=== PATIENT | male | born 1990 | race Caucasian/White ===

== ENCOUNTER 2016-11-01 21:38 | Emergency (ER) | payer OTHER ==
[~2016-11-01] VITALS: Ht 170.2 cm; Wt 68.2 kg
[2016-11-01 21:49] VITALS: BP 113/66; PULSE 58; RESP 16; O2SAT 98
--- NOTE | 2016-11-01 22:46 | ED.REPORT ---
HPI- Male Date of Service Nov 01, 2016 ED Provider: Dr. Chris Mejia M.D. A 26 year old male presents to the ED with white/yellow penile discharge onset two days ago. The patient also reports painful penile sores and ureteral pain exacerbated with urination. He recently had sexual intercourse with a new partner three days prior to symptom onset. The patient denies any recent travel. Nursing Notes Stated Complaint: DISCHARGE FROM PENIS Chief Complaint: Male Abdominal Pain Nursing Notes Reviewed: Yes Allergies: Coded Allergies: No Known Allergies (Verified Allergy, Unknown, 11/01/16) Scheduled Acyclovir (Acyclovir) 800 Mg Tab 800 MG PO TID Doxycycline Monohyd (Doxycycline Monohyd) 100 Mg Tablet 100 MG PO BID Metronidazole (Flagyl) 500 Mg Tablet 500 MG PO Q8H General Time Seen by MD: 22:46 Chief Complaint Penile discharge... (Yellow/White) Hx Obtained From: Patient Arrived By: Walk-in Onset Occurred: 2 days ago Context of Onset: New sexual contact Symptom Duration: Since onset Location: : Penis (and ureter) Quality: Painful Severity: Current: Moderate Severity: Maximum: Moderate Associated with: Denies: Fever Exacerbated by: Urination Pertinent Negative: Relieved by nothing Recent Healthcare: No recent doctor visit Past Medical History Past Medical History None reported Past Surgical History None reported Smoking History Unknown if Ever Smoker Ambulatory Status Independent Review of Systems Review of Systems Note: + Ureteral pain Constitutional: Denies: Fever GI: Denies: Diarrhea, Vomiting Male: Reports Dysuria, Reports Penile discharge (White/Yellow), Reports Penile lesion Complete sys rev & neg: except as marked. Physical Exam Initial Vital Signs Vital Signs (First) Date Time Temp Pulse Resp B/P Pulse Ox O2 Delivery O2 Flow Rate FiO2 11/01/16 21:49 36.4 58 16 113/66 98 Room Air Head / Eyes: Atraumatic, Normocephalic ENT: Conjunctiva normal, No scleral icterus Neck: Supple, Full range of motion Respiratory: No respiratory distress Skin: Warm, Dry Neurologic: Alert, Oriented, Nonfocal Psychiatric: Mood/affect normal, Behavior normal, Normal thought content Penis: Positive: Discharge present clear, Erythema present (Mild, ureteral ), Lesions present... (x3 ulcerated lesions to underside of penis in peroneal sulcus, consistent with herpes), Negative: Condyloma present No shotty nodes General/Constitutional: Awake, Alert, No acute distress Interpretation & Diagnostics Lab Results Interpretation Test 11/01/16 23:23 Urine Color Straw (YELLOW) Urine Appearance Slightly cloudy Urine pH 6.5 (5.0-8.0) Urine Specific [place] <1.005 (1.003-1.035) Urine Protein Negativemg/dL (NEG,TRACE) Urine Glucose (UA) Negativemg/dL (NEGATIVE) Urine Ketones Negativemg/dL (NEGATIVE) Urine Occult Blood Moderate (NEGATIVE) Urine Nitrite Negative (NEGATIVE) Urine Bilirubin Negative (NEGATIVE) Urine Urobilinogen Normalmg/dL (NORMAL) Urine Leukocyte Esterase Large (NEGATIVE) Urine RBC 0-2/hpf (0-2) Urine WBC 11-50/hpf (0-5) Urine Epithelial Cells Occasional/hpf (NONE-MOD) Urine Crystals None seen (NONE SEEN) Urine Bacteria Few/hpf (NONE-FEW) Urine Hyaline Casts None/lpf (NONE) Urine Granular Casts None seen (NONE SEEN) Urine Waxy Casts None seen (NONE SEEN) Urine Red Blood Cell Casts None seen (NONE SEEN) Urine White Blood Cell Casts None seen (NONE SEEN) Urine Mucus None seen (None Seen) Urine Trichomonas None seen (NONE SEEN) Urine Yeast None (NONE SEEN) Urinalysis Comment None Urine Culture Reflexed Indicated Re-Eval/Medical Decision Med Decision/Clinical Course 26-year-old presents after unprotected sexual intercourse with urethral discharge of clear and occasionally whitish material, and ulcerations on the coronal sulcus inferiorly that are clearly herpes. The urethral discharges chlamydial and could be GC as well. He is treated in routine fashion with Rocephin, doxycycline, Flagyl, and acyclovir. Discharged in stable condition. Re-Evaluation/Progress : Time of Eval: 22:50 Patient Status: Condition improved Re-Evaluation/Progress Note: Discussed with patient diagnosis and plan for discharge. Follow-up and return to the ER instructions given. Patient agrees with plan for care and all questions were addressed. 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 Begin acyclovir three times daily for seven days. Begin Flagyl three times daily for seven days. Wear protection for uncertain sexual contacts. Referrals: [facility] Scribe Attestation Portions of this note were transcribed by Arely Hernandez. I, Dr. Mejia, personally performed the history, physical exam, and medical decision-making; I reviewed and confirmed the accuracy of the information in the transcribed note. Signed by: Anaid Mckeon, 11/02/2016, 02:25 copies to: [facility] Chris Mejia MD Nov 01, 2016 22:46 ARELY HERNANDEZ Nov 01, 2016 23:04
[2016-11-01] MEDS ORDERED: Acyclovir 800 mg Tablet PO ONE (22:55)
[2016-11-01] MEDS ORDERED: cefTRIAXone Inj 250 MG, Lidocaine PF 1% Inj 0.9 ML in Syringe 1 EACH IM ONE (22:55)
[2016-11-01] MEDS ORDERED: DOXY-232 PO (23:00)
[2016-11-01] MEDS ORDERED: METR500T PO (23:00)
[2016-11-01] MEDS ORDERED: ZOV800 PO (23:00)
[2016-11-01 23:38] VITALS: BP 118/50; PULSE 63; O2SAT 96
[2016-11-01 23:54] LABS: APPEARANCE,URINE SLIGHTLY CLOUDY (CLEAR,HAZY); COLOR,URINE STRAW (YELLOW); OCCULT BLOOD,URINE MODERATE (NEGATIVE); PH,URINE 6.5 (5.0-8.0); UROBILINOGEN,URINE NORMAL (NORMAL)
== END 2016-11-01 23:39 | disposition home or self-care (01) ==
LOC: SED 21:38
DX: A56.01 Chlamydial cystitis and urethritis (principal); A60.01 Herpesviral infection of penis
CPT/HCPCS: 81000; 87077; 87081; 87086; 87185; 87491; 87591; 96374; 99284; J0696